=== PATIENT | female | born 1965 | race African-American/Black ===

== ENCOUNTER 2020-08-11 00:02 | Observation (INO) | payer MEDICARE ==
[2020-08-11] MEDS ORDERED: Nitroglycerin 0.4 MG TAB 1 EACH ONE (00:35)
[2020-08-11 00:55] LABS: #Eosinphils 0.1 10x3/uL (0.0-0.5); #Monocytes 0.6 10x3/uL (0.0-1.1); #Neutrophils 3.7 10x3/uL (1.5-8.4); %Basophils 0.4 % (0.0-2.0); %Eosinophils 0.9 % (0.0-6.0); %Lymphocytes 41.4 % (18.0-47.0); %Monocytes 7.5 % (0.0-10.0); %Neutrophils 49.5 % (40.0-75.0); Hemoglobin 12.2 g/dL (12.0-15.5); Mean Corpuscular Hemoglobin 28.6 pg (27.0-33.0); Mean Corpuscular Volume 86.9 fl (81.6-98.3); Platelet Count 275 10x3/uL (150-450); RBC Distribution Width 17.6 % (11.5-14.5); Red Blood Cell (RBC) Count 4.26 10x6/uL (3.90-5.03); White Blood Cell (WBC) Count 7.4 10x3/uL (3.5-10.5)
[2020-08-11 00:57] LABS: ALT (SGPT) 8 U/L (8-55); AST (SGOT) 12 U/L (5-34); Albumin 4.1 g/dL (3.5-5.0); Alkaline Phosphatase 90 U/L (40-110); Anion Gap 12 mmol/L (10-20); BUN (Urea Nitrogen) 7 mg/dL (9.8-20.1); Bilirubin, Total 0.3 mg/dL (0.2-1.2); Calc. Creatinine Clearance 0 mL/min (70-130); Calcium 9.8 mg/dL (7.8-10.44); Carbon Dioxide 25 mmol/L (22-29); Chloride 105 mmol/L (98-107); Globulin 3.2 g/dL (2.4-3.5); Glucose 89 mg/dL (70-105); Potassium 3.8 mmol/L (3.5-5.1); Protein, Total 7.3 g/dL (6.0-8.3); Sodium 138 mmol/L (136-145)
[2020-08-11] MEDS ORDERED: Acetaminophen 500 MG TAB ONE (01:17)
[2020-08-11] MEDS ORDERED: Morphine 2 MG/ML VIAL ONE (02:20)
[2020-08-11] MEDS ORDERED: HYDROcodone/Acetaminophen 5/325 mg Tablet PO PRN (03:34)
[2020-08-11] MEDS ORDERED: Nitroglycerin 0.4 MG TAB (25 Tab Bottle) SL PRN (03:34)
[2020-08-11] MEDS ORDERED: Morphine 2 MG/ML VIAL SLOW IVP PRN (03:34)
[2020-08-11] MEDS ORDERED: Ventolin HFA Inhaler 60 PUFF INHALER INH PRN (03:40)
[2020-08-11] MEDS ORDERED: hydrOXYzine 25 MG TAB PO PRN (03:40)
[2020-08-11 04:06] VITALS: BMI 27.3
[2020-08-11] MEDS: Nitroglycerin 2% Ointment 1 INCH/1 GM Packet TOP SCH ×3 (04:14→21:04)
[2020-08-11] MEDS ORDERED: busPIRone HCl 15 MG TAB PO SCH (04:30)
[2020-08-11] MEDS ORDERED: Sodium Chloride 0.9% 1,000 ML IV SCH (04:30)
[2020-08-11] MEDS ORDERED: tiZANidine HCl 4 MG TAB PO SCH ×2 (04:30→21:00)
[2020-08-11] MEDS ORDERED: traZODone HCl 50 MG TAB PO SCH ×2 (04:30→21:00)
[2020-08-11 05:28] LABS: Troponin I Less than 0.010 ng/mL (< 0.028)
[2020-08-11 05:30] LABS: Anion Gap 10 mmol/L (10-20); BUN (Urea Nitrogen) 8 mg/dL (9.8-20.1); Calc. Creatinine Clearance 88 mL/min (70-130); Calcium 9.9 mg/dL (7.8-10.44); Carbon Dioxide 26 mmol/L (22-29); Chloride 104 mmol/L (98-107); Cholesterol 161 mg/dl (< 200 Desired); Glucose 81 mg/dL (70-105); HDL Cholesterol 54 mg/dL (>60 Neg Risk); LDL Cholesterol, Calculated 86 mg/dL; Magnesium 1.8 mg/dL (1.6-2.6); Potassium 3.7 mmol/L (3.5-5.1); Sodium 136 mmol/L (136-145); Triglycerides 103 mg/dL (Less than 150)
[2020-08-11 05:43] LABS: #Basophils 0.1 10x3/uL (0.0-0.2); #Eosinphils 0.1 10x3/uL (0.0-0.5); #Monocytes 0.8 10x3/uL (0.0-1.1); #Neutrophils 3.8 10x3/uL (1.5-8.4); %Basophils 0.6 % (0.0-2.0); %Eosinophils 1.6 % (0.0-6.0); %Lymphocytes 40.8 % (18.0-47.0); %Monocytes 9.6 % (0.0-10.0); %Neutrophils 47.2 % (40.0-75.0); Hemoglobin 11.8 g/dL (12.0-15.5); Mean Corpuscular HGB CONC 31.9 g/dL (32.0-36.0); Mean Corpuscular Hemoglobin 28.4 pg (27.0-33.0); Mean Corpuscular Volume 89.2 fl (81.6-98.3); Mean Platelet Volume 9.9 fl (7.4-10.4); Platelet Count 265 10x3/uL (150-450); RBC Distribution Width 17.8 % (11.5-14.5); Red Blood Cell (RBC) Count 4.15 10x6/uL (3.90-5.03); White Blood Cell (WBC) Count 8.1 10x3/uL (3.5-10.5)
[2020-08-11] MEDS: Mometasone 100 MCG/PUFF (1 INHALER) INH SCH ×2 (06:35→19:13)
[2020-08-11 07:27] LABS: Troponin I Less than 0.010 ng/mL (< 0.028)
[2020-08-11] MEDS: Cholecalciferol 1,000 UNITS (25 MCG) TAB PO SCH (08:02)
[2020-08-11] MEDS: Aspirin 81 mg Enteric Coated Tablet PO SCH (08:02)
[2020-08-11] MEDS: DULoxetine 30 MG CAP PO SCH (08:21)
[2020-08-11] MEDS: metFORMIN 500 MG TAB PO SCH (08:21)
[2020-08-11] MEDS: Lisinopril 20 MG TAB PO SCH (08:21)
[2020-08-11] MEDS: Enoxaparin Sodium 40 MG/0.4 ML SYRINGE SC SCH (08:21)
[2020-08-11] MEDS: Hydroxychloroquine Sulfate 200 MG TAB PO SCH (08:21)
[2020-08-11] MEDS ORDERED: FLU VACC QS2020-21(6MOS UP)/PF 60 MCG/0.5 ML SYRINGE IM ONE (09:00)
[2020-08-11] MEDS ORDERED: DULoxetine 60 MG CAP PO SCH (09:00)
[2020-08-11] MEDS ORDERED: Non-Formulary Medication 1 EACH (Fluticasone/Umeclidin/Vilanter [Trelegy Ellipta 100-62.5- INH SCH (09:00)
[2020-08-11 15:52] LABS: SARS-CoV-2 PCR by NAA Not Detected (NotDetected)
[2020-08-11] MEDS ORDERED: LURASIDONE HCL PO SCH (21:00)
[2020-08-11] MEDS ORDERED: ALPRAZolam 1 MG TAB PO SCH (21:00)
[2020-08-11] MEDS: busPIRone HCl 15 MG TAB PO SCH (21:05)
[2020-08-12] MEDS: Nitroglycerin 2% Ointment 1 INCH/1 GM Packet TOP SCH (04:01)
[2020-08-12 08:15] VITALS: BP 136/86; TEMP 98.2
[2020-08-12] MEDS: Aspirin 81 mg Enteric Coated Tablet PO SCH (09:45)
[2020-08-12] MEDS: busPIRone HCl 15 MG TAB PO SCH (09:46)
[2020-08-12] MEDS: Cholecalciferol 1,000 UNITS (25 MCG) TAB PO SCH (09:46)
[2020-08-12] MEDS: Hydroxychloroquine Sulfate 200 MG TAB PO SCH (09:47)
[2020-08-12] MEDS: Enoxaparin Sodium 40 MG/0.4 ML SYRINGE SC SCH (09:47)
[2020-08-12] MEDS: metFORMIN 500 MG TAB PO SCH (09:47)
[2020-08-12] MEDS: Lisinopril 20 MG TAB PO SCH (09:47)
[2020-08-12] MEDS: DULoxetine 30 MG CAP PO SCH (09:53)
== END 2020-08-12 10:12 | disposition home or self-care (01) ==
LOC: CSHERS 00:02 → CSHTELE 03:34 → UNDOADMOB 03:57 → INTOOBSV 03:57
PROVIDERS: ADMIT Family Medicine; ATTEND Internal Medicine
DX: R07.9 Chest pain, unspecified (principal); J44.9 Chronic obstructive pulmonary disease, unspecified; I27.20 Pulmonary hypertension, unspecified; F17.210 Nicotine dependence, cigarettes, uncomplicated; L93.0 Discoid lupus erythematosus; E74.39 Other disorders of intestinal carbohydrate absorption; I10 Essential (primary) hypertension; Z87.39 Personal history of other diseases of the musculoskeletal system and connective tissue; K58.0 Irritable bowel syndrome with diarrhea; F32.9 Major depressive disorder, single episode, unspecified; Z79.899 Other long term (current) drug therapy; Z79.82 Long term (current) use of aspirin; Z79.84 Long term (current) use of oral hypoglycemic drugs; Z20.822 Contact with and (suspected) exposure to COVID-19
CPT/HCPCS: 36415; 36416; 71045; 71275; 80053; 80061; 83735; 83880; 84484; 85025; 87635; 93005; 93010; 93306; 94640; 94664; 94760; 96372; 96374; G0378; J1650; J2270; J7620; U0003; U0005

== ENCOUNTER 2021-05-03 20:58 | Emergency (ER) | payer MEDICARE, OTHER ==
[2021-05-03] MEDS ORDERED: Ketorolac Tromethamine 30 MG/ML VIAL ONE (21:35)
== END 2021-05-03 21:35 | disposition home or self-care (01) ==
LOC: CSHERS 20:58
DX: S16.1XXA Strain of muscle, fascia and tendon at neck level, initial encounter (principal); I11.0 Hypertensive heart disease with heart failure; I50.9 Heart failure, unspecified; J44.9 Chronic obstructive pulmonary disease, unspecified; M10.9 Gout, unspecified; M19.90 Unspecified osteoarthritis, unspecified site; L93.0 Discoid lupus erythematosus; F17.210 Nicotine dependence, cigarettes, uncomplicated; V43.52XA Car driver injured in collision with other type car in traffic accident, initial encounter
CPT/HCPCS: 96372; 99283; J1885

== ENCOUNTER 2022-04-28 11:36 | Emergency (ER) | payer OTHER ==
[2022-04-28 12:30] LABS: #Basophils 0.1 10x3/uL (0.0-0.2); #Eosinphils 0.1 10x3/uL (0.0-0.5); #Monocytes 0.8 10x3/uL (0.0-1.1); #Neutrophils 4.8 10x3/uL (1.5-8.4); %Basophils 0.7 % (0.0-2.0); %Eosinophils 1.4 % (0.0-6.0); %Lymphocytes 33.7 % (18.0-47.0); %Monocytes 9.2 % (0.0-10.0); %Neutrophils 54.8 % (40.0-75.0); Hemoglobin 12.4 g/dL (12.0-15.5); Mean Corpuscular HGB CONC 33.3 g/dL (32.0-36.0); Mean Corpuscular Hemoglobin 29.4 pg (27.0-33.0); Mean Corpuscular Volume 88.2 fl (81.6-98.3); Mean Platelet Volume 9.7 fl (7.4-10.4); Platelet Count 278 10x3/uL (150-450); RBC Distribution Width 15.7 % (11.5-14.5); Red Blood Cell (RBC) Count 4.22 10x6/uL (3.90-5.03); White Blood Cell (WBC) Count 8.7 10x3/uL (3.5-10.5)
[2022-04-28] MEDS ORDERED: Ketorolac Tromethamine 30 MG/ML VIAL ONE (12:47)
[2022-04-28] MEDS ORDERED: Lidocaine Viscous Sol 2% 15 ml UD Cup ONE (12:47)
[2022-04-28] MEDS ORDERED: Mag-Al Plus 1200 MG/1200 MG/120 MG/30 ML UDCUP ONE (12:47)
[2022-04-28] MEDS ORDERED: Sucralfate 1 GM/10 ML UDCUP ONE (12:48)
[2022-04-28] MEDS ORDERED: Ondansetron ODT 4 MG TAB ONE ×2 (12:49→12:59)
[2022-04-28] MEDS ORDERED: Famotidine 20 MG TAB ONE (12:51)
[2022-04-28 12:59] LABS: ALT (SGPT) Less than 6 U/L (8-55); AST (SGOT) 9 U/L (5-34); Albumin 4.3 g/dL (3.5-5.0); Alkaline Phosphatase 100 U/L (40-110); Anion Gap 14 mmol/L (10-20); BUN (Urea Nitrogen) 13 mg/dL (9.8-20.1); Bilirubin, Total 0.3 mg/dL (0.2-1.2); Calc. Creatinine Clearance 0 mL/min (70-130); Calcium 10.2 mg/dL (7.8-10.44); Carbon Dioxide 22 mmol/L (22-29); Chloride 99 mmol/L (98-107); Estimated GFR 64; Globulin 3.7 g/dL (2.4-3.5); Glucose 95 mg/dL (70-105); Lipase 19 U/L (8-78); Potassium 3.7 mmol/L (3.5-5.1); Sodium 131 mmol/L (136-145)
== END 2022-04-28 13:33 | disposition home or self-care (01) ==
LOC: CSHERS 11:36
DX: R10.13 Epigastric pain (principal); R51.9 Headache, unspecified; R11.0 Nausea; E11.9 Type 2 diabetes mellitus without complications; J44.9 Chronic obstructive pulmonary disease, unspecified; I11.0 Hypertensive heart disease with heart failure; I50.9 Heart failure, unspecified; F17.210 Nicotine dependence, cigarettes, uncomplicated
CPT/HCPCS: 36415; 80053; 83690; 85025; 87804; 99284; J1885; Q0162